=== PATIENT | female | born 1970 | race African-American/Black ===

== ENCOUNTER 2018-07-16 20:16 | Emergency (ER) | payer BC ==
[~2018-07-16] VITALS: Ht 170.2 cm; Wt 110.7 kg
[~2018-07-16 20:16] MED LIST: ALBU18HF2 INH; IBUP-1096 PO; PRED50TA PO
--- NOTE | 2018-07-16 20:20 | NUR ---
Pt brought to ER by daughter, pt last known well time 1929, daughter states on the way to the hospital, pt started having numbness on left arm and unable to recognize daughter, and had speech problem. Pt has left sided weakness and slurred/garbled speech.
--- NOTE | 2018-07-16 20:30 | NUR ---
Pt out of ER for CT.
[2018-07-16 20:45] LABS: BASOPHILS # (AUTO) 0.1 K/uL (0.0-8.0); BASOPHILS % (AUTO) 0.8 % (0.0-2.0); EOSINOPHILS # (AUTO) 0.1 K/uL (0.0-0.7); EOSINOPHILS % (AUTO) 1.4 % (0.0-7.0); HEMATOCRIT 38.8 % (31.2-41.9); HEMOGLOBIN 13.3 g/dL (10.9-14.3); LYMPHOCYTES # (AUTO) 3.7 K/uL (20.0-40.0); LYMPHOCYTES % (AUTO) 40.1 % (20.5-51.5); MEAN CORPUSCULAR HEMOGLOBIN 30.6 uug (24.7-32.8); MEAN CORPUSCULAR HGB CONC 34 g/dL (32.3-35.6); MEAN CORPUSCULAR VOLUME 89.3 fL (75.5-95.3); MONOCYTES # (AUTO) 0.4 K/uL (2.0-10.0); MONOCYTES % (AUTO) 4.2 % (0.0-11.0); NEUTROPHILS # (AUTO) 4.9 K/uL (1.8-8.9); NEUTROPHILS % (AUTO) 53.5 % (38.5-71.5); PLATELET COUNT (AUTO) 309 K/uL (179-408); RED BLOOD CELL COUNT(AUTO) 4.35 MIL/uL (3.63-4.92); WHITE BLOOD COUNT (AUTO) 9.2 K/uL (3.8-11.8)
--- NOTE | 2018-07-16 20:45 | NUR ---
Pt back to ER from CT.
[2018-07-16 20:55] LABS: POTASSIUM 3.8 mmol/L (3.5-5.1)
--- NOTE | 2018-07-16 21:00 | NUR ---
Pt being evaluated by [facility] .
[2018-07-16 21:11] VITALS: BP 179/92
[2018-07-16] MEDS ORDERED: LABETALOL HCL 100 MG/20 ML VIAL ONE (21:12)
[2018-07-16] MEDS ORDERED: LABETALOL HCL 100 MG/20 ML VIAL IV ONE (21:15)
[2018-07-16] MEDS ORDERED: ALTEPLASE 100 MG VIAL IV ONE ×2 (21:15)
--- NOTE | 2018-07-16 21:23 | NUR ---
Spoke to Mukesh from [facility] regarding pt status. was told that Dr. Cornejo was talking [place] and will get back to us.
[2018-07-16] MEDS ORDERED: NORMAL SALINE FLUSH 10 ML DISP.SYRIN ONE (21:25)
[2018-07-16] MEDS ORDERED: IV NORMAL SALINE 250 ML IV ONE (21:25)
[2018-07-16] MEDS ORDERED: SWABABLE VALVE TRANSFER SET EA MC ONE (21:25)
[2018-07-16] MEDS ORDERED: IOHEXOL 350 100 ML INFUS..BTL ONE (21:25)
--- NOTE | 2018-07-16 21:40 | NUR ---
Pt out of ER for CTA.
--- NOTE | 2018-07-16 21:55 | NUR ---
Pt back to ER from [facility].
--- NOTE | 2018-07-16 22:25 | NUR ---
[facility] EMT arrived to transport pt to [facility].
--- NOTE | 2018-07-16 22:30 | NUR ---
Report given to Katlyn VILLALPANDO RN [facility].
--- NOTE | 2018-07-16 22:45 | NUR ---
Report given to Dea Cates. Documentation and CD of CTA provided.
--- NOTE | 2018-07-16 22:53 | NUR ---
Pt out of ER, to be transported to [facility].
== END 2018-07-16 23:00 | disposition short-term general hospital (02) ==
LOC: ER 20:17
DX: I63.9 Cerebral infarction, unspecified (principal); I10 Essential (primary) hypertension; J45.909 Unspecified asthma, uncomplicated; Z88.5 Allergy status to narcotic agent
CPT/HCPCS: 36415; 37195; 70450; 70496; 70498; 71045; 80048; 80061; 82962; 84484; 85025; 85730; 93005; 96374; 99291; 99292; A4663; J2997; J3490 ×3; J7050; Q9967; 70030-TC